=== PATIENT | female | born 1995 | race Two or more races ===

== ENCOUNTER 2017-08-20 21:00 | Emergency (ER) | payer SELFPAY ==
[~2017-08-20] VITALS: Ht 154.9 cm; Wt 47.1 kg
[2017-08-20 21:10] VITALS: BP 118/72
== END 2017-08-20 22:01 | disposition left against medical advice (07) ==
LOC: ED 21:55
DX: H57.11 Ocular pain, right eye (principal); Z53.21 Procedure and treatment not carried out due to patient leaving prior to being seen by health care provider